=== PATIENT | male | born 1985 | race Caucasian/White ===

== ENCOUNTER 2017-07-12 23:22 | Emergency (ER) | payer MEDICAID ==
[~2017-07-12] VITALS: Ht 182.9 cm; Wt 127.0 kg
[~2017-07-12 23:22] MED LIST: ACHD5005 PO; AGM875T PO; ALPR1TAB2 PO; ALPR1TAB7 PO; AMOX500C2 PO; CLIN300C3 PO; CLOT45CR46 TOP; COLC0.6T53 PO; CRS350T PO; CYCL-97 PO; DEXT20TA8 PO; DIAZ5TAB3 PO; DOXY100C2 PO; HYDR-1231 PO; HYDR-3714 PO; HYDR-3720 PO; HYDR-3812 PO; HYDR-757 PO; KETO10TA77 PO; MPR22T TOP; NAPR-243 PO; NAPR550T PO; ORPH100T PO; PENI500T PO; PHEN37.555 PO; PRAZ2CAP2 PO; PROP40TA5 PO; RT-ALBUINH INH; SULF1TAB7 PO; TRM50T PO
--- OUTSIDE RECORDS SUMMARY | 2017-07-12 23:29 | XMS REPORT ---
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 03495249 Problem Elevated blood pressure reading without diagnosis of hypertension 796.2 Active 949319371 Problem Encounter for long-term (current) use of other medications V58.69 Active 507907056 Problem Anxiety F41.9 Active 17105993 Problem ADHD, predominantly inattentive type F90.0 Active 76714190 Problem Unspecified cellulitis and abscess of toe 681.10 Active 849464960 Problem Other hammer toe (acquired) 735.4 Active 81178378 Problem Gout, unspecified 274.9 Active 46770466 Problem Unspecified disorder of the teeth and supporting structures 525.9 Active 368048936 ALLERGIES No Information SOCIAL HISTORY Never Assessed PLAN OF CARE VITAL SIGNS MEDICATIONS Medication Instructions Dosage Frequency Start Date End Date Duration Status Adderall 20 mg Orally twice a day 1 tablet 12h Nov, 28 days Active RESULTS No Results PROCEDURES No Known procedures IMMUNIZATIONS No Known Immunizations MEDICAL (GENERAL) HISTORY Type Description Date Medical History ADHD Medical History Anxiety Medical History Back Pain Surgical History surgically removed toenail right foot Jun 2016
--- OUTSIDE RECORDS SUMMARY | 2017-07-12 23:30 | XMS REPORT ---
Author Author CAITLIN HURT [facility] [employer] Address Unknown Phone Unavailable Care Team Providers Care Equity Research Analyst Name Role Phone CAITLIN HURT CP Unavailable Allergies, Adverse Reactions, Alerts Substance Reaction Event Type Ibuprofen Info Not Available Drug Allergy Aspirin Info Not Available Drug Allergy Narcotics breach of contract Non Drug Allergy Problems Problem Type Condition Code Onset Dates Condition Status Problem Closed fracture of navicular (scaphoid) bone of wrist 814.01 Active Assessment Dental examination Z01.20 Active Problem Gout, unspecified 274.9 Active 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 Problem Unspecified cellulitis and abscess of toe 681.10 Active Problem Elevated blood pressure reading without diagnosis of hypertension 796.2 Active Problem Unspecified disorder of the teeth and supporting structures 525.9 Active Problem Other hammer toe (acquired) 735.4 Active Problem Encounter for long-term (current) use of other medications V58.69 Active Medications No Known Medications Procedures Procedure Coding System Code Date INTRAORL-PERIAPICAL 1 FILM 27681 CPT-4 D0220 Oct 15, 2015 LTD ORAL EVALUATION - PROBLEM FOCUS CPT-4 D0140 Oct 15, 2015 Results No Known Results Summary Purpose eClinicalWorks Submission
--- OUTSIDE RECORDS SUMMARY | 2017-07-12 23:30 | XMS REPORT ---
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 71131408 Problem Elevated blood pressure reading without diagnosis of hypertension 796.2 Active 552065738 Problem Encounter for long-term (current) use of other medications V58.69 Active 829162797 Problem Anxiety F41.9 Active 96036316 Problem ADHD, predominantly inattentive type F90.0 Active 31725306 Problem Unspecified cellulitis and abscess of toe 681.10 Active 477885619 Problem Other hammer toe (acquired) 735.4 Active 73257163 Problem Gout, unspecified 274.9 Active 06480606 Problem Unspecified disorder of the teeth and supporting structures 525.9 Active 678744366 ALLERGIES Substance Reaction Event Type Date Status Ibuprofen Unknown Drug Allergy Oct, Active Aspirin Unknown Drug Allergy Oct, Active Narcotics breach of contract Non Drug Allergy Oct, Active SOCIAL HISTORY No smoking Hx information available PLAN OF CARE Activity Details Follow Up 4 Weeks Reason: VITAL SIGNS MEDICATIONS Medication Instructions Dosage Frequency Start Date End Date Duration Status Promethazine-Codeine 6.25-10 MG/5ML Orally every 6 hrs 5 ml as needed 6h Active Adderall 20 mg Orally 2 times a day 1 tablet in the morning 12h Active Adderall 20 MG Orally twice a day 1 tablet 12h Oct, 30 days Active Albuterol Sulfate HFA 108 (90 Base) MCG/ACT Inhalation every 4 hrs 2 puffs as needed 4h Active Xanax 1 MG Orally once a day prn anxiety 1 tablet 30 days Active Flonase Allergy Relief 50 MCG/ACT Nasally Once a day 1 spray in each nostril 24h Active RESULTS No Results PROCEDURES Procedure Date Ordered Related Diagnosis Body Site Office Visit, Est Pt., Level 4 Nov 03, 2016 IMMUNIZATIONS No Known Immunizations
[2017-07-13] MEDS ORDERED: CEPH500T PO (00:11)
--- NOTE | 2017-07-13 00:12 | ED Integumentary General ---
General Chief Complaint: Skin/Wound Problems Stated Complaint: RT LEG PAIN,POSS SPIDER BITE Nursing Triage Note: right lower leg redness Source: patient Exam Limitations: no limitations History of Present Illness Time seen by provider: 00:01 Initial Comments Patient presents to ER by private conveyance with chief complaint that he has redness and swelling started up this evening on his right lower leg. He said he was having some chills and a headache yesterday evening that there was nothing wrong with his legs. He's not had any problems with swelling, cellulitis or abscess. He's had no injury there is no sign of drainage or pore. He says he put a warm compress on it and took some Tylenol. He denies any past medical history other than he had some high blood pressure but after losing weight and no longer needed any medications for it. He says he cannot take NSAIDs because it causes a rash. He is attempting to quit smoking and is down to 4 cigarettes a day. Allergies and Home Medications Allergies Coded Allergies: ibuprofen (Unverified Allergy, Mild, RASH, 12/11/10) aspirin (Unverified Allergy, Unknown, 08/19/16) fentanyl (Unverified Allergy, Unknown, RASH TO PATCH, 08/19/16) tramadol (Unverified Allergy, Unknown, 08/19/16) Home Medications No Active Prescriptions or Reported Meds Constitutional: chills, No fever, No malaise EENTM: No ear discharge, No ear pain Respiratory: No cough, No short of breath Cardiovascular: No chest pain, No palpitations Gastrointestinal: No abdominal pain, No constipation, No diarrhea, No nausea Genitourinary: No discharge, No dysuria Musculoskeletal: No back pain, No joint pain Skin: see HPI, change in color, rash Psychiatric/Neurological: Denies Headache, Denies Numbness Past Leyhokf-Ejnhkh-Ujoomw Hx Patient Social History Alcohol Use: Denies Use Recreational Drug Use: No Smoking Status: Current Everyday Smoker Type Used: Cigarettes Recent Foreign Travel: No Contact w/Someone Who Travel: No Recent Infectious Disease Expo: No Recent Hopitalizations: No Immunizations Up To Date Tetanus Booster (TDap): Unknown Seasonal Allergies Seasonal Allergies: No Surgeries History of Surgeries: No Respiratory History of Respiratory Disorde: No Currently Using CPAP: No Cardiovascular History of Cardiac Disorders: Yes Cardiac Disorders: Hypertension Neurological History of Neurological Disord: No Reproductive System Hx Reproductive Disorders: No Sexually Transmitted Disease: No HIV/AIDS: No Genitourinary History of Genitourinary Disor: No Gastrointestinal History of Gastrointestinal Di: No Musculoskeletal History of Musculoskeletal Dis: Yes Musculoskeletal Disorders: Arthritis, Chronic Back Pain Endocrine History of Endocrine Disorders: No HEENT History of HEENT Disorders: No Loss of Vision: Denies Hearing Impairment: Denies Cancer History of Cancer: No Psychosocial History of Psychiatric Problem: Yes Behavioral Health Disorders: ADD/ADHD, Anxiety, Depression Integumentary History of Skin or Integumenta: Yes Skin/Integumentary Disorders: Recent Skin Changes Blood Transfusions History of Blood Disorders: No Adverse Reaction to a Blood Tr: No (N/A) Family Medical History Significant Family History: No Pertinent Family Hx Physical Exam Vital Signs Vital Sign - Last 12Hours 07/12/17 23:36 Temp 96.7 Pulse 110 Resp 18 B/P (MAP) 140/102 Pulse Ox 98 O2 Delivery Room Air Capillary Refill : Less Than 3 Seconds General Appearance: WD/WN, no apparent distress HEENT: PERRL/EOMI, pharynx normal Neck: non-tender, supple Cardiovascular: normal peripheral pulses, regular rate, rhythm, no edema Respiratory: no respiratory distress, no accessory muscle use Gastrointestinal: non tender, soft Neurologic/Psychiatric: alert, oriented x 3 Skin: warm/dry, No damp, rash (erythematous irregular bordered patch over the anterior lateral right gunn) Progress/Results/Core Measures Results/Orders My Orders Orders - CATALINO FARIAS Ceftriaxone Injection (Rocephin Injectio (07/13/17 00:15) Lidocaine 1% Injection (Xylocaine 1% Inj (07/13/17 00:15) Acetaminophen Tablet (Tylenol Tablet) (07/13/17 00:15) Vital Signs/I&O Vital Sign - Last 12Hours 07/12/17 23:36 Temp 96.7 Pulse 110 Resp 18 B/P (MAP) 140/102 Pulse Ox 98 O2 Delivery Room Air Blood Pressure Mean: 115 Departure Impression Impression: Primary Impression: Cellulitis Qualified Codes: L03.115 - Cellulitis of right lower limb Disposition: 01 HOME, SELF-CARE Condition: Stable Departure-Patient Inst. Decision time for Depature: 00:09 Referrals: NO,LOCAL PHYSICIAN (PCP) Primary Care Physician Patient Instructions: Cellulitis (Skin Infection), Adult (DC) Add. Discharge Instructions: You've been given a dose of antibiotics and tomorrow you should make your way to the pharmacy and picking crew supervisor some Keflex to be taken one capsule by mouth with food 4 times a day for the next 10 days. You should notice some improvement in 3 -4 days. However if you start having fevers chills or worsening of your symptoms you should follow up with your primary care physician. If you do not have a primary care physician or you have difficulty filling your prescriptions I suggest you follow-up with [facility]. All discharge instructions reviewed with patient and/or family. Voiced understanding. Scripts Cephalexin (Cephalexin) 500 Mg Tablet 500 MG PO QID for 10 Days, #40 TAB 0 Refills Prov: CATALINO FARIAS 07/13/17 Copy Copies To 1: ARNOLDO NICHOLS TITUS J Jul 13, 2017 00:12
[2017-07-13] MEDS ORDERED: LIDOCAINE 1% INJ 20 ML (XYLOCAINE) VIAL INJ ONE (00:15)
[2017-07-13] MEDS ORDERED: cefTRIAXone 1 GM (ROCEPHIN) VIAL IM ONE (00:15)
[2017-07-13] MEDS ORDERED: ACETAMINOPHEN 500 MG TAB (TYLENOL) PO ONE (00:15)
[2017-07-13 00:25] VITALS: BP 138/94
== END 2017-07-13 00:25 | disposition home or self-care (01) ==
LOC: EDUNIT# 23:22 → ER 23:25
DX: L03.115 Cellulitis of right lower limb (principal); I10 Essential (primary) hypertension; M19.90 Unspecified osteoarthritis, unspecified site; F90.9 Attention-deficit hyperactivity disorder, unspecified type; F41.9 Anxiety disorder, unspecified; F32.9 Major depressive disorder, single episode, unspecified; F17.210 Nicotine dependence, cigarettes, uncomplicated
CPT/HCPCS: 96372; 99284

== ENCOUNTER 2017-09-16 13:10 | Emergency (ER) | payer MEDICAID ==
[~2017-09-16] VITALS: Ht 182.9 cm; Wt 111.1 kg
[~2017-09-16 13:10] MED LIST changes: +CEPH500T PO
--- NOTE | 2017-09-16 14:18 | ED Upper Extremity ---
General Chief Complaint: Upper Extremity Stated Complaint: LT ARM SWELLING AND PAIN Nursing Triage Note: PT CO OF L WRIST PAIN, STATES FELL ON IT LAST PM Nursing Sepsis Screen: No Definite Risk History of Present Illness Time seen by provider: 13:40 Initial Comments 32-year-old male presents for left wrist pain. He states last evening he fell landing on an outstretched left arm. He is left-hand dominant. He is taking Tylenol 1000 mg every 4 hours for pain. He denies any previous histories of injuries to his left arm. No other complaints of problems related to the fall. Onset: yesterday Pain/Injury Location: left wrist Method of Injury: fell Modifying Factors: Improves With Rest Allergies and Home Medications Allergies Coded Allergies: ibuprofen (Unverified Allergy, Mild, RASH, 12/11/10) aspirin (Unverified Allergy, Unknown, 08/19/16) fentanyl (Unverified Allergy, Unknown, RASH TO PATCH, 08/19/16) tramadol (Unverified Allergy, Unknown, 08/19/16) Home Medications Unable to Obtain Active Prescriptions or Reported Meds Constitutional: no symptoms reported, see HPI Musculoskeletal: see HPI, joint pain (left wrist) All Other Systems Reviewed Negative Unless Noted: Yes Past Gmsvnlt-Lfuzws-Ympdlp Hx Patient Social History Alcohol Use: Denies Use Recreational Drug Use: No Smoking Status: Current Everyday Smoker Type Used: Cigarettes Recent Foreign Travel: No Contact w/Someone Who Travel: No Recent Infectious Disease Expo: No Recent Hopitalizations: No Physical Abuse: No Sexual Abuse: No Immunizations Up To Date Tetanus Booster (TDap): Unknown Seasonal Allergies Seasonal Allergies: No Surgeries History of Surgeries: No Respiratory History of Respiratory Disorde: No Currently Using CPAP: No Cardiovascular History of Cardiac Disorders: Yes Cardiac Disorders: Hypertension Neurological History of Neurological Disord: No Reproductive System Hx Reproductive Disorders: No Sexually Transmitted Disease: No HIV/AIDS: No Genitourinary History of Genitourinary Disor: No Gastrointestinal History of Gastrointestinal Di: No Musculoskeletal History of Musculoskeletal Dis: Yes Musculoskeletal Disorders: Arthritis, Chronic Back Pain Endocrine History of Endocrine Disorders: No HEENT History of HEENT Disorders: No Loss of Vision: Denies Hearing Impairment: Denies Cancer History of Cancer: No Psychosocial History of Psychiatric Problem: Yes Behavioral Health Disorders: ADD/ADHD, Anxiety, Depression Suicide Risk Score: 0 Integumentary History of Skin or Integumenta: Yes Skin/Integumentary Disorders: Recent Skin Changes Blood Transfusions History of Blood Disorders: No Adverse Reaction to a Blood Tr: No (N/A) Reviewed Nursing Assessment Reviewed/Agree w Nursing PMH: Yes Family Medical History Significant Family History: No Pertinent Family Hx Physical Exam Vital Signs Vital Sign - Last 12Hours 09/16/17 13:20 Temp 98.1 Pulse 81 Resp 18 B/P (MAP) 148/84 (105) Pulse Ox 99 Capillary Refill : Less Than 3 Seconds General Appearance: WD/WN, no apparent distress Wrist: Yes bone tenderness (distal radius and ulna), Yes limited ROM (left), Yes pain (left wrist), Yes soft tissue tenderness, Yes swelling Hand: normal inspection, non-tender, no evidence of injury, normal ROM (with pain), Left Neurologic/Psychiatric: no motor/sensory deficits, alert, normal mood/affect, oriented x 3 Skin: normal color, warm/dry Progress/Results/Core Measures Results/Orders My Orders Orders - MARCELA NOWAK Wrist, Left, 3 Views Or More (09/16/17 13:46) Vital Signs/I&O Vital Sign - Last 12Hours 09/16/17 09/16/17 13:20 14:46 Temp 98.1 Pulse 81 81 Resp 18 18 B/P (MAP) 148/84 (105) Pulse Ox 99 99 Blood Pressure Mean: 105 Progress Note : Time: 13:40 Progress Note Patient presents for left wrist pain, will obtain x-rays and reevaluate. 1415 x-rays negative for any acute injuries. Wrist splint applied with Blake wrap , an ice pack given. Discharge instructions and return precautions reviewed with patient Diagnostic Imaging Diagonstic Imaging: Xray Plain Films/CT/US/NM/MRI: other (wrist) Comments NAME: ESTUARDO SLAUGHTER [facility] REC#: [id number] PT STATUS: REG ER : 1985 PHYSICIAN: MARCELA NOWAK ADMIT DATE: 09/16/17/ER Draft Date of Exam:09/16/17 WRIST, LEFT, 3 VIEWS OR MORE Three views of the left wrist. INDICATION: Fall. FINDINGS: There is no acute fracture, dislocation, or radiopaque foreign body. There is question of an old fracture involving the scaphoid without change from prior exams. Joint alignment is satisfactory. IMPRESSION: No acute fracture. Dictated on workstation # [id number] Dict: 09/16/17 1408 Trans: 09/16/17 1415 [id number] Interpreted by: FEDE CUELLAR MD Electronically signed by: Reviewed: Reviewed by Me Departure Impression Impression: Primary Impression: Fall Qualified Codes: W19.XXXA - Unspecified fall, initial encounter Additional Impression: Contusion of left wrist Qualified Codes: S60.212A - Contusion of left wrist, initial encounter Disposition: HOME, SELF-CARE Condition: Stable Departure-Patient Inst. Decision time for Depature: 14:20 Referrals: NO,LOCAL PHYSICIAN (PCP/Family) Primary Care Physician Patient Instructions: Contusion (DC) Add. Discharge Instructions: Ice to left wrist 20 minutes every 2 hours. Tylenol 650 mg every 6 hours for pain. May use wrist splint as needed for pain. Wean out of it over the next week. All up with primary care provider if symptoms are not improving. Return to emergency department for new injuries. All discharge instructions reviewed with patient and/or family. Voiced understanding. Scripts Unable to Obtain Active Prescriptions or Reported Meds MARCELA NOWAK Sep 16, 2017 14:18
[2017-09-16 14:46] VITALS: BP 148/84
== END 2017-09-16 14:46 | disposition home or self-care (01) ==
LOC: EDUNIT# 13:10 → ER 13:13
DX: S60.212A Contusion of left wrist, initial encounter (principal); I10 Essential (primary) hypertension; M19.90 Unspecified osteoarthritis, unspecified site; F90.9 Attention-deficit hyperactivity disorder, unspecified type; F41.9 Anxiety disorder, unspecified; F32.9 Major depressive disorder, single episode, unspecified; F17.210 Nicotine dependence, cigarettes, uncomplicated; W19.XXXA Unspecified fall, initial encounter
CPT/HCPCS: 73110; 99282

== ENCOUNTER 2023-01-12 10:09 | Emergency (ER) | payer SELFPAY ==
[~2023-01-12] VITALS: Ht 180 cm; Wt 109.7 kg
[~2023-01-12 10:09] MED LIST changes: +AMOX875T2 PO; +DOXY100T31 PO; +FLUC150T41 PO; -HYDR-3812 PO; +NICO-587 TD; +TERB30CR TP
[2023-01-12 10:25] VITALS: BP 159/97
--- NOTE | 2023-01-12 11:22 | ED General ---
General Chief Complaint: Bite-Animal/Human/Insect Stated Complaint: INSECT BITE ON LT HAND Nursing Triage Note: Patient ambulatory to ER with c/o insect bite to the left hand. Source of Information: Patient Exam Limitations: No Limitations History of Present Illness Date Seen by Provider: Jan 12, 2023 Time Seen by Provider: 10:30 Initial Comments This 37-year-old gentleman presents to the emergency room with pain and swelling of the left hand on the dorsal aspect between the first and third digits. He first noticed pain and swelling about 2 days ago. Yesterday he developed some ulceration and drainage of blood and pus. He now has a scab crater in the center of the area. There is no overt fluctuant abscess evident during evaluation. He does give a history of MRSA abscess requiring drainage and MRSA of the face requiring multiple rounds of antibiotic therapy. He denies any fever. He has family history of diabetes but denies personal history of diabetes. He is not presently established with a primary care provider, but anticipates establishing care with [facility] in the very near future. Allergies and Home Medications Allergies Coded Allergies: ibuprofen (Unverified Allergy, Mild, RASH, 12/11/10) aspirin (Unverified Allergy, Unknown, 08/19/16) fentanyl (Unverified Allergy, Unknown, RASH TO PATCH, 08/19/16) tramadol (Unverified Allergy, Unknown, 08/19/16) Patient Home Medication List Home Medication List Reviewed: Yes Amoxicillin (Amoxicillin) 875 Mg Tablet, 875 MG PO BID Prescribed by: LAYLA BLOCK on 01/05/18 1045 Doxycycline Monohydrate (Doxycycline Monohydrate) 100 Mg Tablet, 100 MG PO BID Prescribed by: LAYLA BLOCK on 01/05/18 1045 Fluconazole (Fluconazole) 150 Mg Tablet, 150 MG PO DAILY Prescribed by: LAYLA BLOCK on 01/05/18 1044 Hydrocodone Bit/Acetaminophen (Lortab 5 Mg Tablet) 1 Tab Tab, 1-2 TAB PO Q6HR PRN for PAIN-MODERATE Prescribed by: LAYLA BLOCK on 01/05/18 1044 Nicotine (Nicotine Patch) 1 Each Patch.td24, 14 MG TD DAILY@0900 Prescribed by: LAYLA BLOCK on 01/05/18 1044 Sulfamethoxazole/Trimethoprim (Bactrim Ds Tablet) 1 Each Tablet, 1 EACH PO BID Prescribed by: MICHELA ALMANZA on 01/12/23 1123 Terbinafine HCl (Lamisil At) 30 Gm Cream..g., 0 GM TP BID Prescribed by: LAYLA BLOCK on 01/05/18 1044 Review of Systems Review of Systems Constitutional: no symptoms reported EENTM: no symptoms reported Respiratory: no symptoms reported Cardiovascular: no symptoms reported Gastrointestinal: no symptoms reported Genitourinary: no symptoms reported Musculoskeletal: see HPI Skin: see HPI Psychiatric/Neurological: No Symptoms Reported Hematologic/Lymphatic: No Symptoms Reported Immunological/Allergic: no symptoms reported Past Llbyfyu-Eozvkv-Ygjdud Hx Patient Social History Tobacco Use?: Yes Tobacco type used: Cigarettes Smoking Status: Current Everyday Smoker Substance use?: No Alcohol Use?: No Immunizations Up To Date Tetanus Booster (TDap): Unknown Seasonal Allergies Seasonal Allergies: No Past Medical History Surgeries: Yes (RIGHT GREAT TOENAIL REMOVED) Respiratory: No Currently Using CPAP: No Cardiac: Yes (HAS BEEN PRESCRIBED PROPRANOLOL IN PAST, BUT HAS NOT TAKEN FOR A LONG TIME) Hypertension Neurological: No Reproductive Disorders: No Sexually Transmitted Disease: No HIV/AIDS: No Genitourinary: No Gastrointestinal: No Musculoskeletal: Yes Arthritis, Chronic Back Pain, Gout Endocrine: No HEENT: Yes (POOR DENTITION) Loss of Vision: Denies Hearing Impairment: Denies Cancer: No Psychosocial: Yes ADD/ADHD, Anxiety, Bipolar, Depression Integumentary: Yes (CELLULITIS OF LEGS, TINEA PEDIS, MRSA) Recent Skin Changes Blood Disorders: No Adverse Reaction/Blood Tranf: No (N/A) Family Medical History Diabetes mellitus 19 MOTHER Hypercholesterolemia 19 FATHER Hypertension 19 FATHER Seizure disorder 19 MOTHER Daughter from SIDS Physical Exam Vital Signs Vital Signs - First Documented 01/12/23 10:25 Temp 34.7 Pulse 92 Resp 18 B/P (MAP) 159/97 (117) Pulse Ox 98 O2 Delivery Room Air Capillary Refill : Less Than 3 Seconds Height, Weight, BMI Height: 6'0.00" Weight: 286lbs. 4.8oz. [id number]; 33.00 BMI Method:Stated General Appearance: No Apparent Distress, WD/WN HEENT: Normal ENT Inspection Respiratory: Lungs Clear, Normal Breath Sounds, No Accessory Muscle Use Cardiovascular: Regular Rate, Rhythm, No Edema, No Murmur Extremity: Other (Erythematous lesion about 1.5 cm in diameter over the dorsal left hand between the first and second digit with a eschared center. No active drainage. No fluctuance to suggest abscess. This area is significantly tender.) Neurologic/Psychiatric: Alert, Oriented x3, Normal Mood/Affect Skin: Normal Color, Warm/Dry, Other (Lesion as described above in the extremity exam. Additionally there is an induration of the skin approximately 2 cm in jacque meter on the radial aspect of the left forearm. This lesion is nontender and has no apparent fluctuant fluid collection. It appears to be confined to the skin itself.) Progress/Results/Core Measures Suspected Sepsis SIRS Temperature: Pulse: 92 Respiratory Rate: 18 Blood Pressure 159 /97 Mean: 117 Results/Orders Lab Results Laboratory Tests Test 01/12/23 10:50 Range/Units Glucometer 98 70-110 MG/DL My Orders Orders - MICHELA PATEL MD Accucheck Stat ONCE (01/12/23 10:45) Vital Signs/I&O 01/12/23 10:25 Temp 34.7 Pulse 92 Resp 18 B/P (MAP) 159/97 (117) Pulse Ox 98 O2 Delivery Room Air Capillary Refill : Less Than 3 Seconds Blood Pressure Mean: 117 Point of Care Testing Finger Stick Blood Glucose: 98 Blood Glucose Action Taken: and RN notified Progress Note : Progress Note Bedside ultrasound revealed no fluid collection amenable to drainage. There did appear to be some solid debris under the wound. Patient was prescribed Bactrim and given instructions for managing colonization to prevent future abscesses and infections. See discharge instructions for further discussion. Fingerstick b lood sugar was also obtained as a quick screen for hyperglycemia. Blood sugar was 98. Patient additionally had an indurated lesion on the radial aspect of the left forearm. This lesion appeared to be within the skin tissue and did not appear to be an abscess. It had the appearance of a dermatofibroma but had a more acute onset by history. Patient was advised to keep a close eye on this lesion and discuss it with his primary care provider when he establishes soon. Departure Impression Primary Impression: Abscess, hand Additional Impressions: History of MRSA infection Skin induration Disposition: HOME, SELF-CARE Condition: Improved Departure-Patient Inst. Decision time for Depature: 11:20 Referrals: NO,LOCAL PHYSICIAN (PCP/Family) Primary Care Physician Patient Instructions: MRSA (DC), Skin Abscess Add. Discharge Instructions: Complete the entire course of antibiotics as prescribed. Mix the Hibiclens (chlorhexidine) soap provided with your usual soap and shampoo daily for the next week. Then use weekly for prevention of MRSA. You may use on your entire body including your face and pablo but avoid contact with your eyes and mucous membranes such as the inside of your mouth. This product can be purchased [id number] in the pharmacies as well. You may also swim in chlorinated pools to help prevent recurrence of skin abscesses. You may additionally soak your left hand in warm water with the chlorhexidine soap for 15 to 20 minutes 3-4 times a day over the next few days to encourage any further drainage. If there is any pus remaining in the abscess, this will encourage it to drain out. Keep the wound covered while it is draining to prevent spread of bacteria. Return to care promptly if you develop any other lesions. You may use Tylenol (acetaminophen) up to 1000 mg every 6 hours as needed and/or ibuprofen up to 600 mg every 6 hours as needed for pain. Follow-up with the [facility] as previously planned. Discussed screening for diabetes. Have your skin lesions inspected again including the firm spot on your left forearm. Return to care if you have any other significant problems or concerns requiring urgent medical attention. Also return to the ER if you develop worsening infection despite taking antibiotics, and especially if you develop fevers over 100 degrees. All discharge instructions reviewed with patient and/or family. Voiced understanding. Scripts Sulfamethoxazole/Trimethoprim (Bactrim Ds Tablet) 1 Each Tablet 1 EACH PO BID, #20 TAB Prov: MICHELA PATEL MD 01/12/23 Work/School Note: Work Release Form Date Seen in the Emergency Department: Jan 12, 2023 Return to Work: Jan 12, 2023 Restrictions: No Restrictions Restrictions: Discharged from ER at approximately 11:30 January 12, 2023. MICHELA PATEL MD Jan 12, 2023 11:22
[2023-01-12] MEDS ORDERED: SULF1TAB38 PO (11:23)
== END 2023-01-12 11:30 | disposition home or self-care (01) ==
LOC: EDUNIT# 10:09 → ER 10:12
DX: L02.512 Cutaneous abscess of left hand (principal); R23.4 Changes in skin texture; F17.210 Nicotine dependence, cigarettes, uncomplicated; Z86.14 Personal history of Methicillin resistant Staphylococcus aureus infection; Z28.310 Unvaccinated for COVID-19; Z83.3 Family history of diabetes mellitus
CPT/HCPCS: 82947